=== PATIENT | female | born 1975 | race Caucasian/White ===

== ENCOUNTER 2019-11-03 07:37 | Emergency (ER) | payer OTHER ==
[2019-11-03 07:55] VITALS: BP 133/78; PULSE 77; TEMP 98.4; BMI 25.7
--- NOTE | 2019-11-03 08:10 | PDOC ---
History of Present Illness - General Chief Complaint: Pain Stated Complaint: ABD PAIN - History of Present Illness Initial Comments: 11/03/19 08:29 44 yo F PMH cholecystectomy, (both C-sections due to lack of contractions with the first), presenting with abdominal pain. Notes crampy 9/10 periumbilical abdominal pain beginning on Thursday, associated with 4 episodes of watery, black, foul smelling stool per day, worsened by eating. Notes that she took Pepto. Patient has been able to eat her normal amount. Never felt before. Took imodium yesterday with some relief. Endorses nausea w/o vomiting. Denies CP, SOB, urinary symptoms, vaginal bleeding. LMP 10/08/2019. Past History - Past Medical History Allergies/Adverse Reactions: Allergies Allergy/AdvReac Type Severity Reaction Status Date / Time No Known Allergies Allergy Verified 11/03/19 07:51 Home Medications: Ambulatory Orders Naproxen [Naprosyn] 500 mg PO BID #20 tablet 08/27/19 - Surgical History Cholecystectomy: Yes - Reproductive History (#): 3 Para: 2 Cervical CA: No Dysfunctional Uterine Bleeding: No Ectopic : No Endometrial CA: No Polycystic Ovaries: No Therapeutic (s) & number: Yes (2 months ago) Tubal Ligation: No Spontaneous : 0 - Immunization History Immunization Up to Date: No - Psycho Social/Smoking Cessation Hx Smoking History: Never smoked Have you smoked in the past 12 months: No Hx Alcohol Use: Yes Drug/Substance Use Hx: No Substance Use Type: None Review of Systems - Review of Systems Comments:: 11/03/19 08:31 GENERAL/CONSTITUTIONAL: denies fever, chills, diaphoresis, generalized weakness , malaise, loss of appetite, weight change HEAD, EYES, EARS, NOSE AND THROAT: denies rhinorrhea, nasal congestion, throat pain, throat swelling, difficulty swallowing, mouth swelling, ear pain, eye pain , visual changes NEUROLOGIC: denies headache, focal weakness or paresthesias, dizziness, unsteady gait, seizure, mental status changes, bladder or bowel incontinence CARDIOVASCULAR: denies chest pain, syncope, palpitations, irregular heart rate, lightheadedness, peripheral edema RESPIRATORY: denies cough, shortness of breath, dyspnea with exertion, orthopnea , wheezing, stridor, hemoptysis GASTROINTESTINAL: endorses abdominal pain, diarrhea, and nausea without vomiting. Denies abdominal distension, constipation, melena, hematochezia GENITOURINARY: denies dysuria, frequency, urgency, hesitancy, hematuria, flank pain, genital pain MUSCULOSKELETAL: denies myalgia, arthralgia, joint swelling, back pain, neck pain SKIN: denies rash, itching, pallor HEMATOLOGIC/IMMUNOLOGIC: denies easy bleeding, easy bruising, lymphadenopathy, frequent infections ENDOCRINE: denies unexplained weight gain, unexplained weight loss, heat intolerance, cold intolerance PSYCHIATRIC: denies anxiety, depression, suicidal or homicidal ideation, hallucinations *Physical Exam - Vital Signs Last Vital Signs Temp Pulse Resp BP Pulse Ox 98.4 F 77 14 133/78 100 11/03/19 07:52 11/03/19 07:52 11/03/19 07:52 11/03/19 07:52 11/03/19 07:52 - Physical Exam 11/03/19 08:35 GENERAL: Awake, alert, and fully oriented, in no acute distress. HEAD: Normal with no signs of trauma. EYES: Pupils equal, round and reactive to light, extraocular movements intact, sclera anicteric, conjunctiva clear. No lid lag. EARS, NOSE, THROAT: Ears normal, nares patent, oropharynx clear without exudates. NECK: Normal range of motion, supple without lymphadenopathy or JVD LUNGS: Breath sounds equal, clear to auscultation bilaterally. No wheezes, and no crackles. No accessory muscle use. HEART: Regular rate and rhythm, normal S1 and S2 without murmur, rub or gallop. ABDOMEN: Soft, periumbilical tenderness, hyperactive bowel sounds, non-distended , negative guarding, negative rebound MUSCULOSKELETAL: Normal range of motion at all joints. No bony deformities or tenderness. No CVA tenderness. UPPER EXTREMITIES: 2+ pulses, warm, well-perfused. No cyanosis. No clubbing. Cap refill <2 seconds. No peripheral edema. LOWER EXTREMITIES: 2+ pulses, warm, well-perfused. No calf tenderness. No peripheral edema. NEUROLOGICAL: Cranial nerves II-XII intact. Normal speech. Normal gait. PSYCHIATRIC: Cooperative. Good eye contact. Appropriate mood and affect. SKIN: Warm, dry, normal turgor, no rashes or lesions noted. ED Treatment Course - LABORATORY CBC & Chemistry Diagram: 11/03/19 09:00 11/03/19 09:00 Medical Decision Making - Medical Decision Making 11/03/19 08:36 Concern for GI virus vs pancreatitis v UTI. - CBC, CMP - lipase - UA/UC/u preg - Pepcid/Maalox - reassess 11/03/19 09:58 WBC 11.9 11/03/19 10:15 K 3.4, otherwise unremarkable. 11/03/19 10:24 Patient states feeling a little better, but still with some ongoing pain. Will give Ofirmev and sublingual Zofran. 11/03/19 10:46 Patient tolerating PO, feeling better. Will dc for further outpatient management. Discharge - Discharge Information Problems reviewed: Yes Clinical Impression/Diagnosis: Abdominal pain, Diarrhea - Follow up/Referral - Patient Discharge Instructions Patient Printed Discharge Instructions: DI for Diarrhea and Traveler's Diarrhea -- Adult Additional Instructions: You were seen with diarrhea and abdominal pain. This improved with medication, and you were able to tolerate oral fluids and food. Your labs were unconcerning. This is likely to be due to a GI bug. It is very important that you drink plenty of fluids and remain well-hydrated. Take acetaminophen as needed for pain. Follow up with your primary care doctor within one week. Return to the ED if you develop worsening symptoms. - Post Discharge Activity
[2019-11-03] MEDS ORDERED: FAMOTIDINE 20 MG/50 ML IVPB 20 MG/50 ML MG IVPB ONE ×2 (08:22→09:09)
[2019-11-03] MEDS ORDERED: MAG HYDROX/AL HYDROX/SIMETH -MYLANTA- ORAL SUSPENSION PO ONE (08:23)
[2019-11-03] MEDS ORDERED: SODIUM CHLORIDE 1,000 ML IV STA (08:52)
[2019-11-03] MEDS ORDERED: MAG HYDROX/AL HYDROX/SIMETH 30 ML UNIT-DOSE CUP ONE (09:09)
[2019-11-03 09:21] LABS: BASO % 0.2 % (0-2.0); EOS % 0.5 % (0-4.5); HEMATOCRIT 37.1 % (32.4-45.2); LYMPH % 14.7 % (8-40); MCH 25.7 pg (25.7-33.7); MCHC 32.3 g/dl (32.0-36.0); MEAN CELL VOLUME 79.8 fl (80-96); MEAN PLT VOLUME 8.1 fl (7.5-11.1); NEUT % 77.6 % (42.8-82.8); PLATELET COUNT 272 K/MM3 (134-434); RBC 4.65 M/mm3 (3.60-5.2); RDW 16.1 % (11.6-15.6); WHITE BLOOD COUNT 11.9 K/mm3 (4.0-10.0)
[2019-11-03 09:25] LABS: PH,URINE 5.5 (5.0-8.0); URINE APPEARANCE CLEAR; URINE BILIRUBIN NEGATIVE (NEGATIVE); URINE COLOR YELLOW; URINE GLUCOSE (UA) NEGATIVE (NEGATIVE); URINE KETONE NEGATIVE (NEGATIVE); URINE LEUK ESTERASE NEGATIVE (NEGATIVE); URINE NITRITE NEGATIVE (NEGATIVE); URINE PROTEIN NEGATIVE (NEGATIVE); URINE UROBILINOGEN 0.2 mg/dL (0.2-1.0)
[2019-11-03 09:59] LABS: ALBUMIN 3.4 g/dl (3.4-5.0); BILIRUBIN,TOTAL 0.2 mg/dL (0.2-1); BLOOD UREA NITROGEN 13.2 mg/dL (7-18); CALCIUM 8.1 mg/dL (8.5-10.1); CREATININE 0.6 mg/dL (0.55-1.3); POTASSIUM 3.4 mmol/L (3.5-5.1); TOT PROT 7.1 g/dl (6.4-8.2)
[2019-11-03] MEDS ORDERED: ONDANSETRON *ODT* 4 MG TABLET SL ONE (10:16)
[2019-11-03] MEDS ORDERED: ACETAMINOPHEN 1000 MG/100 ML VIAL (NON FORMULARY) IVPB ONE (10:24)
--- NOTE | 2019-11-03 10:30 | PDOC ---
Attending Attestation - Resident Resident Name: Gabriella Mccain - ED Attending Attestation I have performed the following: I have examined & evaluated the patient, The case was reviewed & discussed with the resident, I agree w/resident's findings & plan, Exceptions are as noted - HPI HPI: 11/03/19 10:26 44 yo F with h/o cholecystectomy, prior c section her with 3 days of loose watery stool, crampy abd pain and nausea no vomiting. no recent travel, no abx, no f/c. took peptobismol, noted stool to be dark in color. al nonbloody. - Physicial Exam PE: 11/03/19 10:28 awake alert lungs clear bilat heart rrr no mrg abd soft nt nd ext wwp. no edema. no calf tenderness. alert oriented x 3. - Medical Decision Making 11/03/19 10:28 44 F yo F with no pmhx here with 3 days diarreha. nontender abd. likley viral GE. plan labs zofran for nausea, iv hydration . r/o underlying electrolyte abnormality pt feel mild improvement. still c/o crampy wiht stools. will give trial of PO.
[2019-11-03] MEDS ORDERED: POTASSIUM CHLORIDE TABS 20 MEQ TABLET.ER (FP) PO ONE ×2 (10:42→10:44)
[2019-11-03] MEDS ORDERED: ONDANSETRON *ODT* 4 MG TABLET ONE (10:44)
[2019-11-03] MEDS ORDERED: ACETAMINOPHEN INJECTION 100 ML IVPB ONE (10:44)
== END 2019-11-03 11:01 | disposition home or self-care (01) ==
LOC: JER 07:37
PROC: 3E033NZ Introduction of Analgesics, Hypnotics, Sedatives into Peripheral Vein, Percutaneous Approach (ICD-10-PCS; principal; 2019-11-03)
PROC: 3E033GC Introduction of Other Therapeutic Substance into Peripheral Vein, Percutaneous Approach (ICD-10-PCS; 2019-11-03)
DX: A08.4 Viral intestinal infection, unspecified (principal); B97.89 Other viral agents as the cause of diseases classified elsewhere
CPT/HCPCS: 36415; 80053; 81003; 83690; 84703; 85025; 87086; 99283-25; J0131; J7030; Q0162

== ENCOUNTER 2022-11-19 21:18 | Emergency (ER) | payer OTHER ==
[2022-11-19 21:26] VITALS: BP 123/74; PULSE 80; RESP 18; TEMP 98.7; BMI 29.6
[2022-11-19] MEDS ORDERED: FAMOTIDINE 20 MG TABLET PO ONE (22:17)
[2022-11-19] MEDS ORDERED: ACETAMINOPHEN 500 MG TABLET (FP) PO ONE (22:17)
[2022-11-19] MEDS ORDERED: SODIUM CHLORIDE 0.9% 500 ML INFUS.BAG IV ONE (22:17)
[2022-11-19] MEDS ORDERED: MAG HYDROX/AL HYDROX/SIMETH 30 ML UNIT-DOSE CUP PO ONE (22:17)
[2022-11-19] MEDS ORDERED: FAMOTIDINE 20 MG TABLET ONE (22:20)
[2022-11-19] MEDS ORDERED: ACETAMINOPHEN 325 MG TABLET (FP) ONE (22:21)
[2022-11-19] MEDS ORDERED: MAG HYDROX/AL HYDROX/SIMETH 30 ML UNIT-DOSE CUP ONE (22:21)
[2022-11-19 22:46] LABS: BASO % 0.3 % (0-2.0); EOS % 1.2 % (0-4.5); HEMATOCRIT 37.2 % (32.4-45.2); HEMOGLOBIN 11.7 GM/dL (10.7-15.3); LYMPH % 24.5 % (8-40); MCH 22.3 pg (25.7-33.7); MCHC 31.4 g/dl (32.0-36.0); MEAN CELL VOLUME 71.3 fl (80-96); MEAN PLT VOLUME 7.7 fl (7.5-11.1); MONO % 6.8 % (3.8-10.2); NEUT % 67.2 % (42.8-82.8); PLATELET COUNT 255 10^3/uL (134-434); RBC 5.22 M/mm3 (3.60-5.2); RDW 17.6 % (11.6-15.6); WHITE BLOOD COUNT 9.4 K/mm3 (4.0-10.0)
[2022-11-19 22:48] LABS: URINE APPEARANCE CLEAR; URINE BILIRUBIN NEGATIVE (NEGATIVE); URINE COLOR YELLOW; URINE GLUCOSE (UA) NEGATIVE (NEGATIVE); URINE KETONE NEGATIVE (NEGATIVE); URINE LEUK ESTERASE NEGATIVE (NEGATIVE); URINE NITRITE NEGATIVE (NEGATIVE); URINE PROTEIN NEGATIVE (NEGATIVE); URINE UROBILINOGEN 0.2 mg/dL (0.2-1.0)
[2022-11-19 22:51] LABS: HCG,QUALITATIVE URINE Negative
[2022-11-19 23:13] LABS: CALCIUM 8.1 mg/dL (8.5-10.1)
[2022-11-19 23:14] LABS: ALBUMIN 3.3 g/dl (3.4-5.0); BLOOD UREA NITROGEN 8.4 mg/dL (7-18)
[2022-11-19 23:18] LABS: BILIRUBIN,TOTAL 0.4 mg/dL (0.2-1); CREATININE 0.5 mg/dL (0.55-1.3); TOT PROT 6.9 g/dl (6.4-8.2)
== END 2022-11-20 00:10 | disposition home or self-care (01) ==
LOC: JER 21:18
DX: R10.84 Generalized abdominal pain (principal); R19.7 Diarrhea, unspecified; Z20.822 Contact with and (suspected) exposure to COVID-19
CPT/HCPCS: 0241U-QW; 36415; 80053; 81003; 83690; 84703; 85025; 87077; 87086; 99283-25

== ENCOUNTER 2023-01-14 19:58 | Emergency (ER) | payer OTHER ==
[2023-01-14 20:02] VITALS: BP 118/73; PULSE 89; RESP 17; TEMP 98.3; BMI 27.3
[2023-01-14] MEDS ORDERED: ALBUTEROL SO4 2.5/IPRATROPIUM 0.5 INH SOL 3 ML VIAL.NEB. NEB ONE (21:56)
[2023-01-14] MEDS ORDERED: DEXAMETHASONE SOD PHOSPHATE 10 MG/1 ML VIAL ONE (21:57)
== END 2023-01-15 00:06 | disposition home or self-care (01) ==
LOC: JERFT 19:58
DX: R53.83 Other fatigue (principal); R50.9 Fever, unspecified; R09.89 Other specified symptoms and signs involving the circulatory and respiratory systems; R07.89 Other chest pain; R06.02 Shortness of breath; J30.2 Other seasonal allergic rhinitis
CPT/HCPCS: 71046-TC-FY; 99284-25

== ENCOUNTER 2024-01-25 18:37 | Emergency (ER) | payer OTHER ==
[2024-01-25 19:07] VITALS: BP 112/76; PULSE 86; RESP 20; TEMP 99.5; BMI 27.1
[2024-01-25 19:47] LABS: URINE APPEARANCE Clear; URINE BILIRUBIN Negative (NEGATIVE); URINE COLOR Yellow; URINE GLUCOSE (UA) Negative (NEGATIVE); URINE KETONE Negative (NEGATIVE); URINE LEUK ESTERASE Negative (NEGATIVE); URINE NITRITE Negative (NEGATIVE); URINE PROTEIN Negative (NEGATIVE); URINE UROBILINOGEN 0.2 mg/dL (0.2-1.0)
[2024-01-25 19:55] LABS: HCG,QUALITATIVE URINE Negative
[2024-01-25 20:21] LABS: BASO % 0.8 % (0-2.0); EOS % 1.5 % (0-4.5); HEMATOCRIT 38.5 % (32.4-45.2); HEMOGLOBIN 12.6 GM/dL (10.7-15.3); LYMPH % 17.2 % (8-40); MCH 26.2 pg (25.7-33.7); MCHC 32.7 g/dl (32.0-36.0); MEAN CELL VOLUME 79.9 fl (80-96); MEAN PLT VOLUME 7.9 fl (7.5-11.1); MONO % 6.2 % (3.8-10.2); NEUT % 74.3 % (42.8-82.8); PLATELET COUNT 238 10^3/uL (134-434); RBC 4.82 M/mm3 (3.60-5.2); RDW 15.4 % (11.6-15.6); WHITE BLOOD COUNT 16.3 K/mm3 (4.0-10.0)
[2024-01-25] MEDS ORDERED: KETOROLAC TROMETHAMINE 15 MG/ML VIAL ONE (20:29)
[2024-01-25] MEDS: KETOROLAC TROMETHAMINE 15 MG/ML VIAL IVPUSH ONE (20:29)
[2024-01-25 21:21] LABS: POTASSIUM 3.7 mmol/L (3.5-5.1)
[2024-01-25 21:23] LABS: ALBUMIN 3.3 g/dl (3.4-5.0); BLOOD UREA NITROGEN 14.6 mg/dL (7-18); CALCIUM 8.7 mg/dL (8.5-10.1)
[2024-01-25 21:26] LABS: CREATININE 0.6 mg/dL (0.55-1.3)
[2024-01-25 21:28] LABS: BILIRUBIN,TOTAL 0.4 mg/dL (0.2-1); TOT PROT 6.9 g/dl (6.4-8.2)
[2024-01-25] MEDS ORDERED: AMOX TR/POT CLAV 875MG/125MG TABLETS (FP) ONE (22:47)
[2024-01-25] MEDS: AMOX TR/POT CLAV 875MG/125MG TABLETS (FP) PO ONE (22:50)
== END 2024-01-25 23:11 | disposition home or self-care (01) ==
LOC: JER 18:37
PROC: 3E0333Z Introduction of Anti-inflammatory into Peripheral Vein, Percutaneous Approach (ICD-10-PCS; principal; 2024-01-25)
DX: K57.92 Diverticulitis of intestine, part unspecified, without perforation or abscess without bleeding (principal)
CPT/HCPCS: 36415; 74177-TC; 80053; 81003; 84703; 85025; 87086; 99284-25; Q9967

== ENCOUNTER 2024-11-28 18:27 | Emergency (ER) | payer OTHER ==
[2024-11-28 18:38] VITALS: BP 155/61; PULSE 69; RESP 16; TEMP 98.8; BMI 26.6
[2024-11-28] MEDS ORDERED: ACETAMINOPHEN 325 MG TABLET (FP) ONE ×2 (20:21→20:24)
[2024-11-28] MEDS ORDERED: SUCRALFATE 1 GM TABLET (FP) ONE ×2 (20:21→20:24)
[2024-11-28] MEDS ORDERED: MAG HYDROX/AL HYDROX/SIMETH 30 ML UNIT-DOSE CUP ONE ×2 (20:21→20:24)
[2024-11-28] MEDS: ACETAMINOPHEN 325 MG TABLET (FP) PO ONE (20:31)
[2024-11-28] MEDS: MAG HYDROX/AL HYDROX/SIMETH 30 ML UNIT-DOSE CUP PO ONE (20:31)
[2024-11-28] MEDS: SUCRALFATE 1 GM/10 ML UNIT DOSE CUPS PO ONE (20:31)
== END 2024-11-28 22:27 | disposition home or self-care (01) ==
LOC: JER 18:27
DX: R10.13 Epigastric pain (principal); G89.29 Other chronic pain
CPT/HCPCS: 99283-25